=== PATIENT | female | born 1965 | race Caucasian/White ===

== ENCOUNTER 2024-04-14 12:54 | Emergency (ER) | payer SELFPAY ==
[2024-04-14 12:54] VITALS: BP 148/83; PULSE 104; RESP 18; TEMP 36.7; O2SAT 98
== END 2024-04-14 14:13 | disposition left against medical advice (07) ==
LOC: ANHED 14:10
DX: S69.92XA Unspecified injury of left wrist, hand and finger(s), initial encounter (principal); S69.91XA Unspecified injury of right wrist, hand and finger(s), initial encounter
CPT/HCPCS: 99199